=== PATIENT | female | born 1985 | race Caucasian/White ===

== ENCOUNTER 2018-03-02 15:21 | Emergency (ER) | payer OTHER ==
[~2018-03-02] VITALS: Ht 160 cm; Wt 63.5 kg
[~2018-03-02 15:21] MED LIST: BACTRIM DS TAB1 EACH PO; BIAXIN 500 MG500 M1 PO; CLEOCIN HCL300 MG PO; DOXYCYCLINE 10100 MG PO; IBUPROFEN 800800 MG PO; NAPROSYN500 MG PO; NOHOMEMEDICATIONS; NORCO 5-325 TA1 EACH PO; PENICILLIN V P500 MG PO; PENICILLIN VK500 M1 PO; PENICILLIN VK500 MG PO; ULTRAM 50MG TAB50 MG PO
[2018-03-02 15:59] LABS: URINE BLOOD NEGATIVE (Negative); URINE COLOR YELLOW; URINE GLUCOSE-RANDOM* NEGATIVE (Negative); URINE KETONES NEGATIVE (Negative); URINE LEUKOCYTES-REFLEX NEGATIVE (Negative); URINE NITRITE-REFLEX NEGATIVE (Negative); URINE PROTEIN (DIPSTICK) NEGATIVE (Negative); URINE SPECIFIC GRAVITY >= 1.030 (1.005-1.035); URINE UROBILINOGEN 0.2 E.U./dl (0.2-1.0)
[2018-03-02 16:03] LABS: URINE CLARITY SL HAZY
[2018-03-02 16:04] LABS: ICTOTEST (BILI CONFIRMATORY) Negative (Negative); URINE BILIRUBIN NEGATIVE (Negative)
[2018-03-02] MEDS ORDERED: LIDOCAINE1 EACH TRANSDERM (17:09)
[2018-03-02] MEDS ORDERED: NAPROSYN500 MG PO (17:09)
[2018-03-02] MEDS ORDERED: NORFLEX100 MG PO (17:09)
[2018-03-02 17:33] VITALS: BP 114/73
== END 2018-03-02 17:34 | disposition home or self-care (01) ==
LOC: ER 15:21
PROVIDERS: Physician Assistant
DX: S29.011A Strain of muscle and tendon of front wall of thorax, initial encounter (principal); S80.12XA Contusion of left lower leg, initial encounter; F17.210 Nicotine dependence, cigarettes, uncomplicated; Z88.6 Allergy status to analgesic agent; V89.2XXA Person injured in unspecified motor-vehicle accident, traffic, initial encounter; Y92.89 Other specified places as the place of occurrence of the external cause; Y93.89 Activity, other specified; Y99.8 Other external cause status